=== PATIENT | male | born 1935 | race Caucasian/White ===

== ENCOUNTER → 2016-08-19 | Outpatient (CLI) | payer MEDICARE ==
[2016-08-19 11:23] LABS: ANION GAP 8 MEQ/L (8-16); BLOOD UREA NITROGEN 16 MG/DL (7-18); CALCIUM LEVEL 8.6 MG/DL (8.8-10.2); CARBON DIOXIDE LEVEL 29 MEQ/L (21-32); CHLORIDE LEVEL 107 MEQ/L (98-107); CREATININE FOR GFR 1.23 MG/DL (0.70-1.30); GLOMERULAR FILTRATION RATE > 60.0 (>35); GLUCOSE, FASTING 109 MG/DL (83-110); POTASSIUM SERUM 4.2 MEQ/L (3.5-5.1); SODIUM LEVEL 144 MEQ/L (136-145)
--- NOTE | 2016-08-19 16:51 | ECGEPIP ---
Stationary ECG Study [facility] Test Date: 2016-08-19 Pat Name: OCTAVIO CASTRO Department: Room: - Gender: M [employer]: : 1935 Requested By: OPAL Solo Order Number: [id number] Reading MD: Troy Lockhart Measurements Intervals [place] Rate: 82 P: 91 UT: 215 QRS: -24 QRSD: 105 T: 16 QT: 369 QTc: 431 Interpretive Statements Normal sinus rhythm with isolated PVC. First-degree AV block. Leftward axis. 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 No prior tracing for comparison Electronically Signed On 08-19-2016 16:51:46 EST by Troy Lockhart
== END ==
LOC: M LAB 09:42
PROVIDERS: ATTEND Ophthalmology
DX: H11.053 Peripheral pterygium, progressive, bilateral (principal)

== ENCOUNTER → 2017-05-22 | Outpatient (REF) | payer MEDICARE ==
[2017-05-22 19:00] LABS: BASO % 0.7 % (0.0-1.0); EOS # 0.2 10^3/uL (0.0-0.50); EOS % 2.5 % (0.0-3.0); IMMATURE GRANULOCYTE % 0.7 % (0-0); LYMPH # 1.3 10^3/uL (1.5-4.5); LYMPH % 21.3 % (24.0-44.0); MEAN CORPUSCULAR HEMOGLOBIN 29.5 pg (27.0-33.0); MEAN CORPUSCULAR HGB CONC 31.9 g/dl (32.0-36.5); MEAN CORPUSCULAR VOLUME 92.3 fl (80.0-96.0); MONO # 0.6 10^3/uL (0.0-0.8); MONO % 10.3 % (0.0-5.0); NEUTROPHILS # 3.9 10^3/uL (1.8-7.7); NEUTROPHILS % 64.5 % (36.0-66.0); PLATELET COUNT, AUTOMATED 273 10^3/uL (150-450); RED CELL DISTRIBUTION WIDTH 13.5 % (11.5-14.5); WHITE BLOOD COUNT 6.1 10^3/uL (4.0-10.0)
[2017-05-22 19:16] LABS: ALBUMIN 3.8 GM/DL (3.2-5.2); ALBUMIN/GLOBULIN RATIO 1.15 (1.00-1.93); ALKALINE PHOSPHATASE 105 U/L (45-117); ALT/SGPT 31 U/L (12-78); ANION GAP 7 MEQ/L (8-16); AST/SGOT 22 U/L (7-37); BILIRUBIN,TOTAL 0.6 MG/DL (0.2-1.0); BLOOD UREA NITROGEN 13 MG/DL (7-18); CALCIUM LEVEL 8.5 MG/DL (8.8-10.2); CARBON DIOXIDE LEVEL 30 MEQ/L (21-32); CHLORIDE LEVEL 105 MEQ/L (98-107); CHOLESTEROL LEVEL 204 MG/DL (<200); CREATININE FOR GFR 1.09 MG/DL (0.70-1.30); GLOMERULAR FILTRATION RATE > 60.0 (>35); GLUCOSE, FASTING 105 MG/DL (83-110); POTASSIUM SERUM 4.6 MEQ/L (3.5-5.1); SODIUM LEVEL 142 MEQ/L (136-145); TOTAL PROTEIN 7.1 GM/DL (6.4-8.2); TRIGLYCERIDES LEVEL 166 MG/DL (<150)
== END ==
LOC: M SFHCCLAY 11:05
PROVIDERS: ATTEND Family Medicine
DX: E78.2 Mixed hyperlipidemia (principal); D64.9 Anemia, unspecified
CPT/HCPCS: 80053; 80061; 85025; G0463

== ENCOUNTER → 2018-05-22 | Outpatient (REF) | payer MEDICARE ==
[2018-05-22 12:02] LABS: BASO # 0.1 10^3/uL (0.0-0.2); BASO % 0.8 % (0.0-1.0); EOS # 0.3 10^3/uL (0.0-0.50); EOS % 4.5 % (0.0-3.0); HEMATOCRIT 42.9 % (42.0-52.0); HEMOGLOBIN 13.6 g/dl (13.5-17.5); IMMATURE GRANULOCYTE % 1.1 % (0-3.0); LYMPH # 1.3 10^3/uL (1.5-4.5); LYMPH % 20.9 % (24.0-44.0); MEAN CORPUSCULAR HEMOGLOBIN 29.4 pg (27.0-33.0); MEAN CORPUSCULAR HGB CONC 31.7 g/dl (32.0-36.5); MEAN CORPUSCULAR VOLUME 92.7 fl (80.0-96.0); MONO # 0.9 10^3/uL (0.0-0.8); MONO % 14.3 % (0.0-5.0); NEUTROPHILS # 3.6 10^3/uL (1.8-7.7); NEUTROPHILS % 58.4 % (36.0-66.0); PLATELET COUNT, AUTOMATED 269 10^3/uL (150-450); RED BLOOD COUNT 4.63 10^6/uL (4.30-6.10); RED CELL DISTRIBUTION WIDTH 13.4 % (11.5-14.5); WHITE BLOOD COUNT 6.2 10^3/uL (4.0-10.0)
[2018-05-22 12:20] LABS: ALBUMIN 3.9 GM/DL (3.2-5.2); ALBUMIN/GLOBULIN RATIO 1.22 (1.00-1.93); ALKALINE PHOSPHATASE 92 U/L (45-117); ALT/SGPT 33 U/L (12-78); ANION GAP 6 MEQ/L (8-16); AST/SGOT 22 U/L (7-37); BILIRUBIN,TOTAL 0.4 MG/DL (0.2-1.0); BLOOD UREA NITROGEN 19 MG/DL (7-18); CALCIUM LEVEL 8.5 MG/DL (8.8-10.2); CARBON DIOXIDE LEVEL 31 MEQ/L (21-32); CHLORIDE LEVEL 105 MEQ/L (98-107); CHOLESTEROL LEVEL 194 MG/DL (<200); CHOLESTEROL RISK RATIO 4.974 (<5); CREATININE FOR GFR 1.47 MG/DL (0.70-1.30); GLOMERULAR FILTRATION RATE 48.8 (>35); GLUCOSE, FASTING 126 MG/DL (70-100); HDL CHOLESTEROL 39 MG/DL (>40); IRON (FE) 61 UG/DL (65-175); LDL CHOLESTEROL 121 MG/DL (<100); NON-HDL-C 155 MG/DL; POTASSIUM SERUM 4.7 MEQ/L (3.5-5.1); SODIUM LEVEL 142 MEQ/L (136-145); TOTAL PROTEIN 7.1 GM/DL (6.4-8.2); TRIGLYCERIDES LEVEL 168 MG/DL (<150)
[2018-05-22 12:24] LABS: FOLATE 20.4 NG/ML (>5.4); VITAMIN B12 LEVEL 547 PG/ML (247-911)
== END ==
LOC: M LABSMT 08:25
DX: D64.9 Anemia, unspecified (principal); E78.2 Mixed hyperlipidemia
CPT/HCPCS: 82746

== ENCOUNTER → 2019-05-25 | Outpatient (REF) | payer MEDICARE ==
[2019-05-25 18:23] LABS: ALBUMIN 3.8 GM/DL (3.2-5.2); ALT/SGPT 34 U/L (12-78); BASO # 0.1 10^3/uL (0.0-0.2); BASO % 0.9 % (0.0-1.0); BILIRUBIN,TOTAL 0.6 MG/DL (0.2-1.0); BLOOD UREA NITROGEN 17 MG/DL (7-18); CALCIUM LEVEL 8.2 MG/DL (8.8-10.2); CARBON DIOXIDE LEVEL 29 MEQ/L (21-32); CHLORIDE LEVEL 106 MEQ/L (98-107); CHOLESTEROL LEVEL 207 MG/DL (<200); CHOLESTEROL RISK RATIO 5.048 (<5); CREATININE FOR GFR 1.15 MG/DL (0.70-1.30); EOS # 0.3 10^3/uL (0.0-0.5); EOS % 4.1 % (0.0-3.0); GLOMERULAR FILTRATION RATE > 60.0 (>35); GLUCOSE, FASTING 130 MG/DL (70-100); HDL CHOLESTEROL 41 MG/DL (>40); HEMATOCRIT 43.1 % (42.0-52.0); HEMOGLOBIN 13.6 g/dl (13.5-17.5); IRON (FE) 91 UG/DL (65-175); LDL CHOLESTEROL 123 MG/DL (<100); LYMPH # 1.5 10^3/uL (1.5-5.0); LYMPH % 23.6 % (24.0-44.0); MEAN CORPUSCULAR HEMOGLOBIN 29.4 pg (27.0-33.0); MEAN CORPUSCULAR HGB CONC 31.6 g/dl (32.0-36.5); MEAN CORPUSCULAR VOLUME 93.1 fl (80.0-96.0); MONO # 0.8 10^3/uL (0.0-0.8); NEUTROPHILS # 3.7 10^3/uL (1.5-8.5); NEUTROPHILS % 57.3 % (36.0-66.0); NON-HDL-C 166 MG/DL; PLATELET COUNT, AUTOMATED 270 10^3/uL (150-450); POTASSIUM SERUM 4.5 MEQ/L (3.5-5.1); RED BLOOD COUNT 4.63 10^6/uL (4.30-6.10); SODIUM LEVEL 142 MEQ/L (136-145); TOTAL PROTEIN 7.2 GM/DL (6.4-8.2); TRIGLYCERIDES LEVEL 213 MG/DL (<150); WHITE BLOOD COUNT 6.4 10^3/uL (4.0-10.0)
== END ==
LOC: M SFHCCLAY 10:18
PROVIDERS: ATTEND Family Medicine
DX: E78.2 Mixed hyperlipidemia (principal); D64.9 Anemia, unspecified; N18.3 Chronic kidney disease, stage 3 (moderate)

== ENCOUNTER → 2020-02-23 | Outpatient (REF) | payer MEDICARE | LOC: M LAB REF 16:20 | PROVIDERS: ATTEND Dermatology | DX: L90.5 Scar conditions and fibrosis of skin (principal) ==

== ENCOUNTER → 2020-03-14 | Outpatient (REF) | payer MEDICARE ==
[2020-03-14 19:21] LABS: BASO # 0.1 10^3/uL (0.0-0.2); BASO % 1.1 % (0.0-1.0); EOS # 0.2 10^3/uL (0.0-0.5); EOS % 3.4 % (0.0-3.0); HEMATOCRIT 42.2 % (42.0-52.0); HEMOGLOBIN 13.3 g/dl (13.5-17.5); LYMPH # 1.3 10^3/uL (1.5-5.0); LYMPH % 20.4 % (24.0-44.0); MEAN CORPUSCULAR HEMOGLOBIN 29.6 pg (27.0-33.0); MEAN CORPUSCULAR HGB CONC 31.5 g/dl (32.0-36.5); MONO # 0.8 10^3/uL (0.0-0.8); MONO % 12.5 % (0.0-5.0); NEUTROPHILS % 61.4 % (36.0-66.0); PLATELET COUNT, AUTOMATED 273 10^3/uL (150-450); RED BLOOD COUNT 4.49 10^6/uL (4.30-6.10); WHITE BLOOD COUNT 6.5 10^3/uL (4.0-10.0)
[2020-03-14 19:29] LABS: ALBUMIN 3.9 GM/DL (3.2-5.2); ALT/SGPT 31 U/L (12-78); BILIRUBIN,TOTAL 0.7 MG/DL (0.2-1.0); BLOOD UREA NITROGEN 17 MG/DL (7-18); CALCIUM LEVEL 8.5 MG/DL (8.8-10.2); CARBON DIOXIDE LEVEL 29 MEQ/L (21-32); CHLORIDE LEVEL 106 MEQ/L (98-107); CHOLESTEROL LEVEL 206 MG/DL (<200); CHOLESTEROL RISK RATIO 5.421 (<5); CREATININE FOR GFR 1.21 MG/DL (0.70-1.30); GLOMERULAR FILTRATION RATE > 60.0 (>35); GLUCOSE, FASTING 122 MG/DL (70-100); HDL CHOLESTEROL 38 MG/DL (>40); IRON (FE) 90 UG/DL (65-175); LDL CHOLESTEROL 130 MG/DL (<100); NON-HDL-C 168 MG/DL; POTASSIUM SERUM 4.6 MEQ/L (3.5-5.1); SODIUM LEVEL 140 MEQ/L (136-145); TOTAL PROTEIN 7.1 GM/DL (6.4-8.2); TRIGLYCERIDES LEVEL 190 MG/DL (<150)
== END ==
LOC: M SFHCCLAY 18:58
PROVIDERS: ATTEND Family Medicine
DX: E78.2 Mixed hyperlipidemia (principal); D64.9 Anemia, unspecified; N18.3 Chronic kidney disease, stage 3 (moderate)

== ENCOUNTER → 2020-03-14 | Outpatient (REF) | payer MEDICARE | LOC: M LAB REF 14:00 | PROVIDERS: ATTEND Dermatology | DX: D22.5 Melanocytic nevi of trunk (principal) | CPT/HCPCS: 11604; 13101; 13102; 88305; G0463 ==

== ENCOUNTER → 2020-03-22 | Outpatient (CLI) | payer MEDICARE ==
[~2020-03-22] MED LIST: E-Z-GAS II EFFERVESCENT PACKET (SODIUM BICARB./CITRIC ACID/SIMETHICONE) As Ordered ONE; E-Z-HD 98% w/w 340GM SUSP BTL As Ordered ONE; E-Z-PAQUE 96% w/w SUSP 176GM BTL As Ordered ONE
--- NOTE | 2020-04-06 08:34 | REP ---
UPPER GI AIR CONTRAST: The procedure was performed under the direct supervision of Dr. Winter. The drive man film shows no organomegaly or pathologic masses. The intestinal gas pattern is nonspecific. Liquid barium and gas producing granules were given in the erect position as well as liquid barium in the prone oblique position in order to perform a double contrast upper GI examination. The oral and pharyngeal stages of deglutition are unremarkable. Esophageal transport is prompt and efficient. In the distal esophagus at THE GE junction, there is mucosal irregularity with a possible ulcer. Recommend endoscopy for further evaluation. There is hiatal hernia. Gastroesophageal reflux is not demonstrated on this examination. The stomach chang are normally outlined. The rugal folds are smooth and regular. There is no gastritis, neoplasm, or ulcer disease. The duodenal chang are normally outlined. The mucosal folds are smooth and regular. There is no duodenitis, pancreatitis, peptic ulcer disease or neoplasm. The visualized portion of the proximal small bowel appears normal in course and caliber. IMPRESSION: At the GE junction there is mucosal irregularity with a possible ulcer. Recommend endoscopy for further evaluation. 1minute of fluoroscopy time was utilized for this procedure. MTDD
== END ==
LOC: M RAD 08:25
PROVIDERS: ATTEND Family Medicine
DX: R13.10 Dysphagia, unspecified (principal)

== ENCOUNTER → 2020-03-28 | Outpatient (REF) | payer MEDICARE | LOC: M LAB REF 18:54 | PROVIDERS: ATTEND Dermatology | DX: S21.209A Unspecified open wound of unspecified back wall of thorax without penetration into thoracic cavity, initial encounter (principal); X58.XXXA Exposure to other specified factors, initial encounter; Y92.9 Unspecified place or not applicable ==

== ENCOUNTER → 2021-04-13 | Outpatient (REF) | payer MEDICARE ==
[2021-04-13 16:35] LABS: BASO # 0.1 10^3/uL (0.0-0.2); EOS # 0.3 10^3/uL (0.0-0.5); EOS % 5.1 % (0.0-3.0); HEMATOCRIT 39.6 % (42.0-52.0); LYMPH # 1.1 10^3/uL (1.5-5.0); LYMPH % 20.8 % (24.0-44.0); MEAN CORPUSCULAR HEMOGLOBIN 29.7 pg (27.0-33.0); MEAN CORPUSCULAR HGB CONC 32.8 g/dl (32.0-36.5); MEAN CORPUSCULAR VOLUME 90.4 fl (80.0-96.0); MONO # 0.8 10^3/uL (0.0-0.8); MONO % 15.4 % (2.0-8.0); NEUTROPHILS # 2.9 10^3/uL (1.5-8.5); NEUTROPHILS % 56.9 % (36.0-66.0); PLATELET COUNT, AUTOMATED 240 10^3/uL (150-450); RED BLOOD COUNT 4.38 10^6/uL (4.30-6.10); WHITE BLOOD COUNT 5.1 10^3/uL (4.0-10.0)
[2021-04-13 17:13] LABS: ALBUMIN 3.6 GM/DL (3.2-5.2); BILIRUBIN,TOTAL 0.5 MG/DL (0.2-1.0); CALCIUM LEVEL 8.7 MG/DL (8.8-10.2); CHOLESTEROL RISK RATIO 5.272 (<5); CREATININE FOR GFR 1.28 MG/DL (0.70-1.30); POTASSIUM SERUM 4.5 MEQ/L (3.5-5.1); TOTAL PROTEIN 6.8 GM/DL (6.4-8.2)
== END ==
LOC: M SFHCCLAY 09:40
PROVIDERS: ATTEND Family Medicine
DX: E78.2 Mixed hyperlipidemia (principal); D64.9 Anemia, unspecified

== ENCOUNTER → 2021-08-01 | Outpatient (REF) | payer MEDICARE ==
[~2021-08-01] MED LIST changes: -E-Z-GAS II EFFERVESCENT PACKET (SODIUM BICARB./CITRIC ACID/SIMETHICONE) As Ordered ONE; -E-Z-HD 98% w/w 340GM SUSP BTL As Ordered ONE; -E-Z-PAQUE 96% w/w SUSP 176GM BTL As Ordered ONE; +OCUVTAB4 PO; +PANT40TA29 PO; +SYST1SOL OU; +VESI5TAB2 PO; +[UNRECOGNIZED DRUG - OTHER] PO
[2021-08-01 16:12] LABS: BASO # 0.1 10^3/uL (0.0-0.2); BASO % 0.9 % (0.0-1.0); EOS # 0.4 10^3/uL (0.0-0.5); HEMOGLOBIN 12.9 g/dl (13.5-17.5); LYMPH % 11.8 % (24.0-44.0); MEAN CORPUSCULAR HEMOGLOBIN 29.4 pg (27.0-33.0); MEAN CORPUSCULAR HGB CONC 32.3 g/dl (32.0-36.5); MEAN CORPUSCULAR VOLUME 91.1 fl (80.0-96.0); MONO # 1.1 10^3/uL (0.0-0.8); MONO % 12.6 % (2.0-8.0); PLATELET COUNT, AUTOMATED 271 10^3/uL (150-450); RED BLOOD COUNT 4.39 10^6/uL (4.30-6.10); WHITE BLOOD COUNT 8.7 10^3/uL (4.0-10.0)
[2021-08-01 16:31] LABS: ALBUMIN 3.7 GM/DL (3.2-5.2); BILIRUBIN,TOTAL 0.5 MG/DL (0.2-1.0); CALCIUM LEVEL 8.8 MG/DL (8.8-10.2); CREATININE FOR GFR 1.27 MG/DL (0.70-1.30); GLOMERULAR FILTRATION RATE 57.4 (>35); POTASSIUM SERUM 4.8 MEQ/L (3.5-5.1); TOTAL PROTEIN 6.9 GM/DL (6.4-8.2)
== END ==
LOC: M SFHCCLAY 10:08
PROVIDERS: ATTEND Family Medicine
DX: N18.31 Chronic kidney disease, stage 3a (principal); D63.1 Anemia in chronic kidney disease

== ENCOUNTER → 2021-08-04 | Outpatient (CLI) | payer MEDICARE ==
[~2021-08-04] MED LIST changes: +ALLE10TA32 PO; +ALLE180T33 PO; +FLON1SPR NARES; +HYDR-3713 PO; +IBUP200T46 PO; +SOLI5TAB PO; +TRIA1CR80 TOP
== END ==
LOC: M LABSMTC 09:37
PROVIDERS: ATTEND Anesthesiology
DX: Z01.812 Encounter for preprocedural laboratory examination (principal); Z20.822 Contact with and (suspected) exposure to COVID-19

== ENCOUNTER 2021-08-09 09:05 | Day surgery (SDC) | payer MEDICARE ==
[~2021-08-09] VITALS: Ht 175.3 cm; Wt 105.2 kg
[~2021-08-09 09:05] MED LIST changes: -ALLE10TA32 PO; -ALLE180T33 PO; -FLON1SPR NARES; -HYDR-3713 PO; -IBUP200T46 PO; +LR 1,000 ML IV SCH; -SOLI5TAB PO; -TRIA1CR80 TOP
[2021-08-09] MEDS ORDERED: LIDOCAINE 2% 100MG/5ML SDV (FOR ANES.) As Ordered ONE (10:00)
[2021-08-09] MEDS ORDERED: dexameTHASONE 4 MG/ML 1ML VIAL (J1100 PER 1MG) As Ordered ONE (10:00)
[2021-08-09] MEDS ORDERED: SUGAMMADEX SODIUM 500 MG/5 ML VIAL (BRIDION) As Ordered ONE (10:00)
[2021-08-09] MEDS ORDERED: ROCURONIUM BROMIDE 50 MG/5 ML VIAL As Ordered ONE (10:00)
[2021-08-09] MEDS ORDERED: ONDANSETRON 4MG/2ML VIAL As Ordered ONE (10:00)
[2021-08-09] MEDS ORDERED: propofoL 200 MG/20 ML VIAL As Ordered ONE (10:00)
[2021-08-09] MEDS ORDERED: KETOROLAC 60MG 2ML VIAL As Ordered ONE (10:00)
[2021-08-09] MEDS ORDERED: MIDAZOLAM INJ 2MG/2ML VIAL (J2250 PER 1MG) As Ordered ONE (10:01)
[2021-08-09] MEDS ORDERED: fentaNYL 100 MCG/2 ML INJECTION As Ordered ONE (10:01)
[2021-08-09] MEDS ORDERED: CETACAINE SPRAY 5GM As Ordered ONE (11:27)
[2021-08-09] MEDS ORDERED: LABETALOL 100MG/20ML VIAL As Ordered ONE (11:27)
[2021-08-09] MEDS ORDERED: LR 1,000 ML IV SCH (12:45)
[2021-08-09] MEDS ORDERED: PERCOCET 5MG/325MG TAB PO PRN (12:45)
[2021-08-09] MEDS ORDERED: fentaNYL 100 MCG/2 ML INJECTION IV PRN (12:45)
[2021-08-09] MEDS ORDERED: ONDANSETRON 4MG/2ML VIAL IV PRN (12:45)
[2021-08-09 13:25] VITALS: BP 158/82
== END 2021-08-09 13:25 | disposition home or self-care (01) ==
LOC: M SDC 09:05
PROVIDERS: ATTEND Otolaryngology
DX: C32.0 Malignant neoplasm of glottis (principal); E78.2 Mixed hyperlipidemia; D64.9 Anemia, unspecified; N18.31 Chronic kidney disease, stage 3a; K21.00 Gastro-esophageal reflux disease with esophagitis, without bleeding; H91.93 Unspecified hearing loss, bilateral; L30.9 Dermatitis, unspecified; R39.15 Urgency of urination; E78.5 Hyperlipidemia, unspecified; J44.9 Chronic obstructive pulmonary disease, unspecified; Z87.891 Personal history of nicotine dependence; Z79.899 Other long term (current) drug therapy
CPT/HCPCS: 31540; 88305; J1100; J1885; J2250; J2405; J3010

== ENCOUNTER → 2021-08-24 | Outpatient (CLI) | payer MEDICARE ==
[~2021-08-24] MED LIST changes: +ALLE10TA32 PO; +ALLE180T33 PO; +FLON1SPR NARES; +HYDR-3713 PO; +IBUP200T46 PO; +ISOVUE-370 76% 100ML VIAL ONE; -LR 1,000 ML IV SCH; +SOLI5TAB PO; +TRIA1CR80 TOP
== END ==
LOC: M PLAIMG 15:16
PROVIDERS: ATTEND Otolaryngology
DX: C32.0 Malignant neoplasm of glottis (principal)
CPT/HCPCS: 70491; Q9967

== ENCOUNTER → 2021-08-28 | Outpatient (CLI) | payer MEDICARE ==
[~2021-08-28] MED LIST changes: -ISOVUE-370 76% 100ML VIAL ONE
== END ==
LOC: M ONCR 12:26
PROVIDERS: ATTEND General Practice
DX: C32.0 Malignant neoplasm of glottis (principal); Z87.891 Personal history of nicotine dependence
CPT/HCPCS: 31575; G0463

== ENCOUNTER 2021-09-24 12:24 | Outpatient (RCR) | payer MEDICARE ==
[~2021-09-24 12:24] MED LIST changes: -CEPH500C PO; -DEXA4TA PO; -GNPLIQ60 PO; -NAPR-885 PO
[2021-09-24] MEDS ORDERED: CEPH500C PO (14:18)
[2021-09-24] MEDS ORDERED: DEXA4TA PO (14:18)
[2021-09-24 15:11] LABS: CREATININE FOR GFR 1.32 MG/DL (0.70-1.30); GLOMERULAR FILTRATION RATE 54.9 (>35); POTASSIUM SERUM 4.2 MEQ/L (3.5-5.1)
[2021-09-24 15:12] LABS: ALBUMIN 3.4 GM/DL (3.2-5.2); BILIRUBIN,TOTAL 0.8 MG/DL (0.2-1.0); CALCIUM LEVEL 8.9 MG/DL (8.8-10.2); TOTAL PROTEIN 7.7 GM/DL (6.4-8.2)
[2021-09-25] MEDS ORDERED: NAPR-885 PO (17:27)
[2021-09-25] MEDS ORDERED: GNPLIQ60 PO (17:27)
[2021-10-01] MEDS ORDERED: METO1TAB87 PO (10:34)
[2021-10-01] MEDS ORDERED: AMLO1TAB25 PO (10:34)
[2021-10-01] MEDS ORDERED: ACET325C5 PO (10:34)
[2021-10-01] MEDS ORDERED: AUGM500T34 PO (10:36)
[2021-10-01] MEDS ORDERED: METF500T13 PO (10:36)
[2021-10-01] MEDS ORDERED: PROB250C PO (10:37)
[2021-10-09] MEDS ORDERED: PROC10TA5 PO (13:51)
[2021-10-09] MEDS ORDERED: ONDA-84 PO (13:51)
== END 2021-10-04 ==
LOC: M ONCR 12:24
PROVIDERS: ATTEND General Practice
DX: C32.0 Malignant neoplasm of glottis (principal)

== ENCOUNTER → 2021-09-24 | Outpatient (CLI) | payer MEDICARE ==
[~2021-09-24] MED LIST changes: +CEPH500C PO; +DEXA4TA PO; +GNPLIQ60 PO; +ISOVUE-370 76% 100ML VIAL As Ordered ONE; +NAPR-885 PO
== END ==
LOC: M RAD 14:56
PROVIDERS: ATTEND General Practice
DX: C32.0 Malignant neoplasm of glottis (principal)

== ENCOUNTER → 2021-09-24 | Outpatient (CLI) | payer MEDICARE ==
[~2021-09-24] MED LIST changes: -ISOVUE-370 76% 100ML VIAL As Ordered ONE
== END ==
LOC: M ONCR 14:32
PROVIDERS: ATTEND General Practice
DX: C32.0 Malignant neoplasm of glottis (principal)

== ENCOUNTER 2021-09-25 14:40 | Inpatient (IN) | payer MEDICARE ==
[~2021-09-25] VITALS: Ht 177.8 cm; Wt 99.0 kg
[~2021-09-25 14:40] MED LIST changes: +CEPH500C PO; +DEXA4TA PO
[2021-09-25] MEDS ORDERED: NS 1,000 ML IV SCH ×2 (15:05→16:30)
[2021-09-25 15:38] LABS: BASO % 0.1 % (0.0-1.0); HEMATOCRIT 36.6 % (42.0-52.0); HEMOGLOBIN 11.9 g/dl (13.5-17.5); LYMPH # 0.6 10^3/uL (1.5-5.0); LYMPH % 5.9 % (24.0-44.0); MEAN CORPUSCULAR HEMOGLOBIN 28.5 pg (27.0-33.0); MEAN CORPUSCULAR HGB CONC 32.5 g/dl (32.0-36.5); MEAN CORPUSCULAR VOLUME 87.8 fl (80.0-96.0); MONO # 0.6 10^3/uL (0.0-0.8); MONO % 5.7 % (2.0-8.0); NEUTROPHILS # 8.6 10^3/uL (1.5-8.5); PLATELET COUNT, AUTOMATED 388 10^3/uL (150-450); RED BLOOD COUNT 4.17 10^6/uL (4.30-6.10); WHITE BLOOD COUNT 9.9 10^3/uL (4.0-10.0)
[2021-09-25 15:49] LABS: INR 1.1; PROTHROMBIN TIME 14.6 SECONDS (12.7-14.5)
[2021-09-25 16:02] LABS: ALBUMIN 3.2 GM/DL (3.2-5.2); BILIRUBIN,DIRECT 0.1 MG/DL (0.0-0.2); BILIRUBIN,TOTAL 0.7 MG/DL (0.2-1.0); CALCIUM LEVEL 8.4 MG/DL (8.8-10.2); CREATININE FOR GFR 1.47 MG/DL (0.70-1.30); GLOMERULAR FILTRATION RATE 48.5 (>35); POTASSIUM SERUM 4.5 MEQ/L (3.5-5.1)
[2021-09-25 16:22] LABS: RSV AMPLIFICATION NEGATIVE (NEGATIVE)
[2021-09-25] MEDS ORDERED: DEXTROSE 50% 50 ML SYRINGE IV PRN (17:25)
[2021-09-25] MEDS ORDERED: GLUCOSE 4GM CHEW TABLET PO PRN (17:25)
[2021-09-25] MEDS ORDERED: GLUCAGON INJ 1MG VIAL SC PRN (17:25)
[2021-09-25] MEDS ORDERED: NAPR-885 PO (17:27)
[2021-09-25] MEDS ORDERED: GNPLIQ60 PO (17:27)
[2021-09-25] MEDS ORDERED: HOME MED LIST COMPLETE! XX SCH (17:30)
[2021-09-25] MEDS: LR 1,000 ML IV SCH (17:38)
[2021-09-25 17:52] VITALS: BP 142/78
[2021-09-25] MEDS: HumaLOG INSULIN (NovoLOG) PER UNIT SC SCH (18:00)
[2021-09-25] MEDS: NORCO, ANEXSIA 5/325MG TABLET (HYDROcodone/ACETAMINOPHEN) PO SCH (18:00)
[2021-09-25] MEDS ORDERED: cefTRIAXone SOD 1 GM in D5W MINI-BAG PLUS 50 ML IV SCH (18:00)
[2021-09-25] MEDS: PANTOPRAZOLE 40MG VIAL IV SCH (18:23)
[2021-09-25 20:15] LABS: HEMOGLOBIN A1c 8.2 %
[2021-09-26] VITALS (17 sets, daily range): BP systolic 160–189; BP diastolic 75–89; O2SAT 94–98
[2021-09-26] MEDS: NORCO, ANEXSIA 5/325MG TABLET (HYDROcodone/ACETAMINOPHEN) PO SCH ×3 (06:00→12:00)
[2021-09-26] MEDS: HumaLOG INSULIN (NovoLOG) PER UNIT SC SCH ×5 (06:00→23:23)
[2021-09-26 06:55] LABS: HEMATOCRIT 34.2 % (42.0-52.0); HEMOGLOBIN 11.4 g/dl (13.5-17.5); MEAN CORPUSCULAR HEMOGLOBIN 29.5 pg (27.0-33.0); MEAN CORPUSCULAR HGB CONC 33.3 g/dl (32.0-36.5); MEAN CORPUSCULAR VOLUME 88.4 fl (80.0-96.0); PLATELET COUNT, AUTOMATED 385 10^3/uL (150-450); RED BLOOD COUNT 3.87 10^6/uL (4.30-6.10); WHITE BLOOD COUNT 13.4 10^3/uL (4.0-10.0)
[2021-09-26] MEDS: LR 1,000 ML IV SCH ×2 (06:55→16:37)
[2021-09-26 07:26] LABS: CALCIUM LEVEL 8.7 MG/DL (8.8-10.2); CREATININE FOR GFR 1.37 MG/DL (0.70-1.30); GLOMERULAR FILTRATION RATE 52.6 (>35)
[2021-09-26] MEDS: dexameTHASONE 4 MG/ML 1ML VIAL (J1100 PER 1MG) IV SCH (09:43)
[2021-09-26] MEDS: PANTOPRAZOLE 40MG VIAL IV SCH (09:43)
[2021-09-26] MEDS ORDERED: propofoL 200 MG/20 ML VIAL As Ordered ONE (12:14)
[2021-09-26] MEDS ORDERED: ONDANSETRON 4MG/2ML VIAL As Ordered ONE (12:14)
[2021-09-26] MEDS ORDERED: dexameTHASONE 4 MG/ML 1ML VIAL (J1100 PER 1MG) As Ordered ONE (12:14)
[2021-09-26] MEDS ORDERED: ROCURONIUM BROMIDE 50 MG/5 ML VIAL As Ordered ONE (12:14)
[2021-09-26] MEDS ORDERED: LIDOCAINE 2% 100MG/5ML SDV (FOR ANES.) As Ordered ONE (12:14)
[2021-09-26] MEDS ORDERED: SUGAMMADEX SODIUM 500 MG/5 ML VIAL (BRIDION) As Ordered ONE (12:14)
[2021-09-26] MEDS ORDERED: fentaNYL 100 MCG/2 ML INJECTION As Ordered ONE (12:21)
[2021-09-26] MEDS ORDERED: MIDAZOLAM INJ 2MG/2ML VIAL (J2250 PER 1MG) As Ordered ONE (12:21)
[2021-09-26] MEDS ORDERED: KETAMINE HCL 200 MG/20 ML VIAL As Ordered ONE (12:58)
[2021-09-26] MEDS ORDERED: LIDOCAINE W/EPINEPHRINE 1% 20ML VIAL As Ordered ONE (13:05)
[2021-09-26] MEDS ORDERED: ALBUTEROL SULFATE 2.5 MG/0.5 ML INH NEB SOLN As Ordered ONE (13:08)
[2021-09-26] MEDS ORDERED: GLYCOPYRROLATE INJ 0.2 MG/ML 2 ML VIAL As Ordered ONE (13:42)
[2021-09-26] MEDS ORDERED: fentaNYL 100 MCG/2 ML INJECTION IV PRN (15:25)
[2021-09-26] MEDS ORDERED: ONDANSETRON 4MG/2ML VIAL IV PRN (15:25)
[2021-09-26] MEDS ORDERED: HYDROMORPHONE HCL 0.5 MG/ 0.5 ML SYRINGE (J1170 PER 1) IV PRN (15:25)
[2021-09-26] MEDS ORDERED: hydrALAZINE 20MG/ML 1ML VIAL (J0360 PER 20MG) As Ordered ONE (15:27)
[2021-09-26] MEDS ORDERED: hydrALAZINE 20MG/ML 1ML VIAL (J0360 PER 20MG) IV PRN (15:50)
[2021-09-26] MEDS: CLINDAMYCIN 600 MG in IV 1 EA IV SCH (17:52)
[2021-09-26] MEDS: ACETAMINOPH W/CODEINE #3 TAB UD PO PRN (18:20)
[2021-09-26] MEDS ORDERED: amLODIPine 5 MG TAB PO ONE (19:45)
[2021-09-26] MEDS: hydrOXYzine 10 MG TAB PO PRN (23:11)
[2021-09-27] VITALS (13 sets, daily range): BP systolic 157–184; BP diastolic 74–84; O2SAT 92–99
[2021-09-27] MEDS: LR 1,000 ML IV SCH ×2 (00:42→08:21)
[2021-09-27] MEDS: CLINDAMYCIN 600 MG in IV 1 EA IV SCH (01:10)
[2021-09-27] MEDS: ACETAMINOPH W/CODEINE #3 TAB UD PO PRN (01:32)
[2021-09-27] MEDS: HumaLOG INSULIN (NovoLOG) PER UNIT SC SCH ×4 (05:35→20:35)
[2021-09-27] MEDS: hydrOXYzine 10 MG TAB PO PRN (06:51)
[2021-09-27 06:58] LABS: HEMATOCRIT 37.3 % (42.0-52.0); HEMOGLOBIN 11.9 g/dl (13.5-17.5); MEAN CORPUSCULAR HEMOGLOBIN 28.5 pg (27.0-33.0); MEAN CORPUSCULAR HGB CONC 31.9 g/dl (32.0-36.5); MEAN CORPUSCULAR VOLUME 89.2 fl (80.0-96.0); PLATELET COUNT, AUTOMATED 425 10^3/uL (150-450); RED BLOOD COUNT 4.18 10^6/uL (4.30-6.10); WHITE BLOOD COUNT 12.9 10^3/uL (4.0-10.0)
[2021-09-27 07:24] LABS: CALCIUM LEVEL 8.4 MG/DL (8.8-10.2); CREATININE FOR GFR 1.44 MG/DL (0.70-1.30); GLOMERULAR FILTRATION RATE 49.6 (>35)
[2021-09-27] MEDS: PANTOPRAZOLE 40MG TAB (PROTONIX) PO SCH ×2 (08:17→09:44)
[2021-09-27] MEDS: dexameTHASONE 4 MG/ML 1ML VIAL (J1100 PER 1MG) IV SCH (08:18)
[2021-09-27] MEDS ORDERED: amLODIPine 5 MG TAB PO SCH (09:00)
[2021-09-27] MEDS ORDERED: diphenhydrAMINE 25MG CAP PO PRN (10:25)
[2021-09-27] MEDS: AMPICILLIN SOD/SULBACTAM SOD 3 GM in D5W MINI-BAG PLUS 100 ML IV SCH ×3 (11:24→23:06)
[2021-09-27] MEDS ORDERED: hydrALAZINE 20MG/ML 1ML VIAL (J0360 PER 20MG) IV PRN (15:30)
[2021-09-27] MEDS ORDERED: FUROSEMIDE 20MG/2ML VIAL (J1940) IV ONE (15:35)
[2021-09-27] MEDS ORDERED: FUROSEMIDE 40MG/4ML VIAL (J1940) IV ONE (15:45)
[2021-09-27] MEDS: HEPARIN SOD (PORCINE) 5000UNITS/ML 1ML VIAL/SYRINGE SQ SCH ×2 (16:04→23:06)
[2021-09-28] VITALS (22 sets, daily range): BP systolic 134–182; BP diastolic 65–83; O2SAT 91–99
[2021-09-28] MEDS: AMPICILLIN SOD/SULBACTAM SOD 3 GM in D5W MINI-BAG PLUS 100 ML IV SCH ×4 (05:36→22:01)
[2021-09-28] MEDS: HEPARIN SOD (PORCINE) 5000UNITS/ML 1ML VIAL/SYRINGE SQ SCH ×3 (05:36→22:02)
[2021-09-28 06:21] LABS: HEMATOCRIT 36.5 % (42.0-52.0); MEAN CORPUSCULAR HEMOGLOBIN 28.6 pg (27.0-33.0); MEAN CORPUSCULAR HGB CONC 32.9 g/dl (32.0-36.5); MEAN CORPUSCULAR VOLUME 86.9 fl (80.0-96.0); PLATELET COUNT, AUTOMATED 413 10^3/uL (150-450); WHITE BLOOD COUNT 10.2 10^3/uL (4.0-10.0)
[2021-09-28 06:44] LABS: CALCIUM LEVEL 8.4 MG/DL (8.8-10.2); CREATININE FOR GFR 1.34 MG/DL (0.70-1.30); GLOMERULAR FILTRATION RATE 53.9 (>35); POTASSIUM SERUM 3.8 MEQ/L (3.5-5.1)
[2021-09-28] MEDS ORDERED: FUROSEMIDE 20MG/2ML VIAL (J1940) IV ONE (08:15)
[2021-09-28] MEDS: dexameTHASONE 4 MG/ML 1ML VIAL (J1100 PER 1MG) IV SCH (08:29)
[2021-09-28] MEDS: HumaLOG INSULIN (NovoLOG) PER UNIT SC SCH ×4 (08:29→20:04)
[2021-09-28] MEDS: PANTOPRAZOLE 40MG TAB (PROTONIX) PO SCH (08:30)
[2021-09-29] VITALS (12 sets, daily range): BP systolic 128–164; BP diastolic 67–77; O2SAT 95–99
[2021-09-29] MEDS: AMPICILLIN SOD/SULBACTAM SOD 3 GM in D5W MINI-BAG PLUS 100 ML IV SCH ×4 (05:05→22:49)
[2021-09-29] MEDS: HEPARIN SOD (PORCINE) 5000UNITS/ML 1ML VIAL/SYRINGE SQ SCH ×3 (05:05→22:49)
[2021-09-29 06:20] LABS: HEMATOCRIT 35.5 % (42.0-52.0); HEMOGLOBIN 11.4 g/dl (13.5-17.5); MEAN CORPUSCULAR HEMOGLOBIN 28.4 pg (27.0-33.0); MEAN CORPUSCULAR HGB CONC 32.1 g/dl (32.0-36.5); MEAN CORPUSCULAR VOLUME 88.5 fl (80.0-96.0); PLATELET COUNT, AUTOMATED 383 10^3/uL (150-450); RED BLOOD COUNT 4.01 10^6/uL (4.30-6.10); WHITE BLOOD COUNT 10.5 10^3/uL (4.0-10.0)
[2021-09-29 06:43] LABS: CALCIUM LEVEL 8.3 MG/DL (8.8-10.2); CREATININE FOR GFR 1.26 MG/DL (0.70-1.30); GLOMERULAR FILTRATION RATE 57.9 (>35); POTASSIUM SERUM 4.3 MEQ/L (3.5-5.1)
[2021-09-29] MEDS ORDERED: FUROSEMIDE 40MG/4ML VIAL (J1940) IV ONE (07:30)
[2021-09-29] MEDS: PANTOPRAZOLE 40MG TAB (PROTONIX) PO SCH (08:34)
[2021-09-29] MEDS: HumaLOG INSULIN (NovoLOG) PER UNIT SC SCH ×4 (08:36→20:03)
[2021-09-30 03:10] VITALS: BP 154/76
[2021-09-30] MEDS: AMPICILLIN SOD/SULBACTAM SOD 3 GM in D5W MINI-BAG PLUS 100 ML IV SCH ×4 (05:10→22:03)
[2021-09-30] MEDS: HEPARIN SOD (PORCINE) 5000UNITS/ML 1ML VIAL/SYRINGE SQ SCH ×3 (05:10→22:03)
[2021-09-30 05:29] LABS: HEMATOCRIT 36.9 % (42.0-52.0); HEMOGLOBIN 12.1 g/dl (13.5-17.5); MEAN CORPUSCULAR HEMOGLOBIN 28.7 pg (27.0-33.0); MEAN CORPUSCULAR HGB CONC 32.8 g/dl (32.0-36.5); MEAN CORPUSCULAR VOLUME 87.6 fl (80.0-96.0); PLATELET COUNT, AUTOMATED 399 10^3/uL (150-450); RED BLOOD COUNT 4.21 10^6/uL (4.30-6.10); WHITE BLOOD COUNT 10.4 10^3/uL (4.0-10.0)
[2021-09-30 05:48] LABS: CALCIUM LEVEL 8.3 MG/DL (8.8-10.2); CREATININE FOR GFR 1.33 MG/DL (0.70-1.30); GLOMERULAR FILTRATION RATE 54.4 (>35); POTASSIUM SERUM 4.7 MEQ/L (3.5-5.1)
[2021-09-30 07:25] VITALS: BP 162/76
[2021-09-30] MEDS: PANTOPRAZOLE 40MG TAB (PROTONIX) PO SCH (08:11)
[2021-09-30] MEDS: HumaLOG INSULIN (NovoLOG) PER UNIT SC SCH ×4 (08:11→20:03)
[2021-09-30] MEDS: ACETAMINOPH W/CODEINE #3 TAB UD PO PRN ×2 (08:21→18:17)
[2021-09-30] MEDS ORDERED: FUROSEMIDE 20 MG TAB PO SCH (09:00)
[2021-09-30 12:02] VITALS: BP 145/71
[2021-09-30 19:14] VITALS: BP 145/69
[2021-10-01 03:05] VITALS: BP 177/81
[2021-10-01] MEDS: AMPICILLIN SOD/SULBACTAM SOD 3 GM in D5W MINI-BAG PLUS 100 ML IV SCH ×2 (05:00→10:46)
[2021-10-01] MEDS: HEPARIN SOD (PORCINE) 5000UNITS/ML 1ML VIAL/SYRINGE SQ SCH (05:01)
[2021-10-01 05:55] LABS: HEMATOCRIT 37.5 % (42.0-52.0); HEMOGLOBIN 12.3 g/dl (13.5-17.5); MEAN CORPUSCULAR HEMOGLOBIN 28.6 pg (27.0-33.0); MEAN CORPUSCULAR HGB CONC 32.8 g/dl (32.0-36.5); MEAN CORPUSCULAR VOLUME 87.2 fl (80.0-96.0); PLATELET COUNT, AUTOMATED 392 10^3/uL (150-450); WHITE BLOOD COUNT 11.4 10^3/uL (4.0-10.0)
[2021-10-01 06:25] LABS: ALBUMIN 3.1 GM/DL (3.2-5.2); BILIRUBIN,TOTAL 0.4 MG/DL (0.2-1.0); CALCIUM LEVEL 8.4 MG/DL (8.8-10.2); CREATININE FOR GFR 1.41 MG/DL (0.70-1.30); GLOMERULAR FILTRATION RATE 50.9 (>35); POTASSIUM SERUM 4.6 MEQ/L (3.5-5.1); TOTAL PROTEIN 6.2 GM/DL (6.4-8.2)
[2021-10-01 08:15] VITALS: BP 135/66
[2021-10-01 08:17] VITALS: BP 135/66
[2021-10-01] MEDS: HumaLOG INSULIN (NovoLOG) PER UNIT SC SCH ×2 (08:17→12:11)
[2021-10-01] MEDS: PANTOPRAZOLE 40MG TAB (PROTONIX) PO SCH (08:18)
[2021-10-01] MEDS ORDERED: METOPROLOL TART 12.5 MG PER 1/2 TAB PO SCH (09:00)
[2021-10-01] MEDS ORDERED: METO1TAB87 PO (10:34)
[2021-10-01] MEDS ORDERED: AMLO1TAB25 PO (10:34)
[2021-10-01] MEDS ORDERED: ACET325C5 PO (10:34)
[2021-10-01] MEDS ORDERED: AUGM500T34 PO (10:36)
[2021-10-01] MEDS ORDERED: METF500T13 PO (10:36)
[2021-10-01] MEDS ORDERED: PROB250C PO (10:37)
[2021-10-01] MEDS: ACETAMINOPH W/CODEINE #3 TAB UD PO PRN (10:45)
== END 2021-10-01 13:18 | disposition home health service (06) | DRG 12 ==
LOC: M ED 14:40 → M ED INP 16:27 → ENRESERV 17:19 → M MS5PR 18:01 → M PCU 09-26 15:50
PROVIDERS: ADMIT Internal Medicine; ATTEND Internal Medicine
PROC: 0HB4XZX Excision of Neck Skin, External Approach, Diagnostic (ICD-10-PCS; 2021-09-26)
PROC: 0B110F4 Bypass Trachea to Cutaneous with Tracheostomy Device, Open Approach (ICD-10-PCS; principal; 2021-09-26 13:00)
DX: C32.0 Malignant neoplasm of glottis (principal); N17.9 Acute kidney failure, unspecified; L02.11 Cutaneous abscess of neck; E78.5 Hyperlipidemia, unspecified; D64.9 Anemia, unspecified; K21.9 Gastro-esophageal reflux disease without esophagitis; H91.93 Unspecified hearing loss, bilateral; N18.30 Chronic kidney disease, stage 3 unspecified; E11.22 Type 2 diabetes mellitus with diabetic chronic kidney disease; I12.9 Hypertensive chronic kidney disease with stage 1 through stage 4 chronic kidney disease, or unspecified chronic kidney disease; B95.5 Unspecified streptococcus as the cause of diseases classified elsewhere; J38.4 Edema of larynx; E11.65 Type 2 diabetes mellitus with hyperglycemia; R22.0 Localized swelling, mass and lump, head; T36.8X5A Adverse effect of other systemic antibiotics, initial encounter; Z98.49 Cataract extraction status, unspecified eye; Z87.891 Personal history of nicotine dependence; Z79.899 Other long term (current) drug therapy; Z93.0 Tracheostomy status

== ENCOUNTER 2021-10-10 09:29 | Inpatient (IN) | payer MEDICARE ==
[~2021-10-10 09:29] MED LIST changes: +ACET325C5 PO; +AMLO1TAB25 PO; +AUGM500T34 PO; +GNPLIQ60 PO; +METF500T13 PO; +METO1TAB87 PO; +NAPR-885 PO; +ONDA-84 PO; +PROB250C PO; +PROC10TA5 PO
[2021-10-10] MEDS ORDERED: ONDANSETRON 4MG/2ML VIAL As Ordered ONE ×2 (09:51→14:13)
[2021-10-10] MEDS ORDERED: RACEPINEPHrine 2.25 % UD INHA INH ONE (10:05)
[2021-10-10 10:34] LABS: BASO # 0.1 10^3/uL (0.0-0.2); BASO % 0.4 % (0.0-1.0); EOS % 0.1 % (0.0-3.0); HEMATOCRIT 37.5 % (42.0-52.0); LYMPH # 0.7 10^3/uL (1.5-5.0); LYMPH % 5.2 % (24.0-44.0); MEAN CORPUSCULAR HEMOGLOBIN 28.4 pg (27.0-33.0); MEAN CORPUSCULAR VOLUME 88.9 fl (80.0-96.0); MONO # 1.2 10^3/uL (0.0-0.8); MONO % 8.7 % (2.0-8.0); NEUTROPHILS # 11.7 10^3/uL (1.5-8.5); NEUTROPHILS % 84.8 % (36.0-66.0); PLATELET COUNT, AUTOMATED 435 10^3/uL (150-450); RED BLOOD COUNT 4.22 10^6/uL (4.30-6.10); WHITE BLOOD COUNT 13.8 10^3/uL (4.0-10.0)
[2021-10-10 11:05] LABS: ALBUMIN 3.4 GM/DL (3.2-5.2); ALT/SGPT 41 U/L (12-78); BILIRUBIN,DIRECT 0.2 MG/DL (0.0-0.2); BILIRUBIN,TOTAL 0.6 MG/DL (0.2-1.0); BLOOD UREA NITROGEN 18 MG/DL (7-18); CALCIUM LEVEL 8.7 MG/DL (8.8-10.2); CARBON DIOXIDE LEVEL 29 MEQ/L (21-32); CHLORIDE LEVEL 103 MEQ/L (98-107); CK-MB VALUE MASS 6.3 NG/ML (<3.6); CREATININE FOR GFR 1.01 MG/DL (0.70-1.30); GLOMERULAR FILTRATION RATE > 60.0 (>35); GLUCOSE, FASTING 155 MG/DL (70-100); MB/CK RELATIVE INDEX 3.94 (< OR =4); POTASSIUM SERUM 4.6 MEQ/L (3.5-5.1); SODIUM LEVEL 136 MEQ/L (136-145); TOTAL PROTEIN 7.1 GM/DL (6.4-8.2)
[2021-10-10 11:13] LABS: RSV AMPLIFICATION NEGATIVE (NEGATIVE)
[2021-10-10] MEDS ORDERED: ISOVUE-370 76% 100ML VIAL As Ordered ONE (11:21)
[2021-10-10] MEDS: HumaLOG INSULIN (NovoLOG) PER UNIT SC SCH ×2 (12:00→18:00)
[2021-10-10] MEDS ORDERED: LIDOCAINE W/EPINEPHRINE 1% 20ML VIAL As Ordered ONE (13:22)
[2021-10-10] MEDS ORDERED: OXYMETAZOLINE 0.05% NASAL SPRAY (AFRIN) As Ordered ONE (13:23)
[2021-10-10] MEDS ORDERED: ALBUTEROL SULFATE 2.5 MG/0.5 ML INH NEB SOLN NEB PRN (14:00)
[2021-10-10] MEDS ORDERED: hydrALAZINE 20MG/ML 1ML VIAL (J0360 PER 20MG) IV PRN (14:00)
[2021-10-10] MEDS ORDERED: DEXTROSE 50% 50 ML SYRINGE IV PRN (14:00)
[2021-10-10] MEDS ORDERED: GLUCAGON INJ 1MG VIAL SC PRN (14:00)
[2021-10-10] MEDS ORDERED: GLUCOSE 4GM CHEW TABLET PO PRN (14:00)
[2021-10-10] MEDS ORDERED: MIDAZOLAM INJ 2MG/2ML VIAL (J2250 PER 1MG) As Ordered ONE (14:13)
[2021-10-10] MEDS ORDERED: fentaNYL 100 MCG/2 ML INJECTION As Ordered ONE (14:13)
[2021-10-10] MEDS ORDERED: LIDOCAINE 2% 100MG/5ML SDV (FOR ANES.) As Ordered ONE (14:13)
[2021-10-10] MEDS ORDERED: propofoL 200 MG/20 ML VIAL As Ordered ONE (14:13)
[2021-10-10] MEDS ORDERED: ETOMIDATE INJ 20MG/10ML VIAL As Ordered ONE (14:13)
[2021-10-10] MEDS ORDERED: fentaNYL 100 MCG/2 ML INJECTION IV PRN (15:20)
[2021-10-10] MEDS ORDERED: LR 1,000 ML IV SCH (15:20)
[2021-10-10] MEDS ORDERED: ONDANSETRON 4MG/2ML VIAL IV PRN (15:20)
[2021-10-10] MEDS ORDERED: oxyCODONE 5MG TAB PO PRN (15:20)
[2021-10-10] MEDS ORDERED: MORPHINE 2 MG/ML 1ML VIAL IV PRN (15:30)
[2021-10-10 16:00] VITALS: BP 114/57
[2021-10-10 16:00] LABS: INR 0.96; PROTHROMBIN TIME 13.2 SECONDS (12.7-14.5)
[2021-10-10 16:01] LABS: PARTIAL THROMBOPLASTIN TIME 35.3 SECONDS (25.9-37.0)
[2021-10-10 16:03] LABS: D-DIMER QUANT 1070.14 ng/ml (<500)
[2021-10-10 16:15] LABS: FERRITIN 327 NG/ML (26-388); LDH LACTATE DEHYDROGENASE 270 U/L (87-241)
[2021-10-10] MEDS ORDERED: FLOR250C PO (16:56)
[2021-10-10] MEDS ORDERED: AMLO1TAB25 PO (16:56)
[2021-10-10] MEDS ORDERED: METF500T13 PO (16:56)
[2021-10-10] MEDS ORDERED: METO25TA4 PO (16:56)
[2021-10-10] MEDS ORDERED: HOME MED LIST COMPLETE! XX SCH (17:00)
[2021-10-10 20:00] VITALS: BP 130/66
[2021-10-11] VITALS: BP 166/70
[2021-10-11 04:00] VITALS: BP_SYST 122; BP_SYST 74; BP_DIAS 74
[2021-10-11 05:08] LABS: HEMATOCRIT 33.5 % (42.0-52.0); HEMOGLOBIN 10.9 g/dl (13.5-17.5); MEAN CORPUSCULAR HEMOGLOBIN 28.9 pg (27.0-33.0); MEAN CORPUSCULAR HGB CONC 32.5 g/dl (32.0-36.5); MEAN CORPUSCULAR VOLUME 88.9 fl (80.0-96.0); PLATELET COUNT, AUTOMATED 405 10^3/uL (150-450); RED BLOOD COUNT 3.77 10^6/uL (4.30-6.10); WHITE BLOOD COUNT 10.6 10^3/uL (4.0-10.0)
[2021-10-11 05:32] LABS: ALT/SGPT 29 U/L (12-78); BILIRUBIN,TOTAL 0.7 MG/DL (0.2-1.0); BLOOD UREA NITROGEN 15 MG/DL (7-18); CALCIUM LEVEL 8.4 MG/DL (8.8-10.2); CARBON DIOXIDE LEVEL 28 MEQ/L (21-32); CHLORIDE LEVEL 103 MEQ/L (98-107); CREATININE FOR GFR 1.04 MG/DL (0.70-1.30); GLOMERULAR FILTRATION RATE > 60.0 (>35); GLUCOSE, FASTING 135 MG/DL (70-100); POTASSIUM SERUM 4.1 MEQ/L (3.5-5.1); SODIUM LEVEL 136 MEQ/L (136-145); TOTAL PROTEIN 6.7 GM/DL (6.4-8.2)
[2021-10-11] MEDS: HumaLOG INSULIN (NovoLOG) PER UNIT SC SCH ×2 (06:00)
[2021-10-11 07:00] VITALS: BP 144/70
[2021-10-11 08:00] VITALS: BP 137/70
[2021-10-11 09:00] VITALS: BP 120/70
[2021-10-11] MEDS ORDERED: PANTOPRAZOLE 40MG VIAL IV SCH (09:00)
[2021-10-11] MEDS ORDERED: GLUCAGON INJ 1MG VIAL SC PRN (09:55)
[2021-10-11] MEDS ORDERED: DEXTROSE 50% 50 ML SYRINGE IV PRN (09:55)
[2021-10-11] MEDS ORDERED: GLUCOSE 4GM CHEW TABLET PO PRN (09:55)
[2021-10-11] MEDS ORDERED: ACET-907 PO (10:15)
[2021-10-11] MEDS ORDERED: HumaLOG INSULIN (NovoLOG) PER UNIT SC SCH ×2 (12:00→21:00)
[2021-10-15] MEDS ORDERED: MAGICMW SSP (16:53)
== END 2021-10-11 11:40 | disposition home or self-care (01) | DRG 205 ==
LOC: M ED 09:29 → M ICU 15:06
PROVIDERS: ADMIT Internal Medicine; ATTEND Internal Medicine
PROC: 0B21XFZ Change Tracheostomy Device in Trachea, External Approach (ICD-10-PCS; 2021-10-10)
PROC: 0BJ18ZZ Inspection of Trachea, Via Natural or Artificial Opening Endoscopic (ICD-10-PCS; principal; 2021-10-10 13:20)
DX: J95.03 Malfunction of tracheostomy stoma (principal); U07.1 COVID-19; E78.5 Hyperlipidemia, unspecified; I12.9 Hypertensive chronic kidney disease with stage 1 through stage 4 chronic kidney disease, or unspecified chronic kidney disease; E11.22 Type 2 diabetes mellitus with diabetic chronic kidney disease; D64.9 Anemia, unspecified; K21.9 Gastro-esophageal reflux disease without esophagitis; H91.93 Unspecified hearing loss, bilateral; N18.30 Chronic kidney disease, stage 3 unspecified; C32.0 Malignant neoplasm of glottis; R06.03 Acute respiratory distress; I16.0 Hypertensive urgency; Y83.1 Surgical operation with implant of artificial internal device as the cause of abnormal reaction of the patient, or of later complication, without mention of misadventure at the time of the procedure; Z87.891 Personal history of nicotine dependence; Z79.84 Long term (current) use of oral hypoglycemic drugs; Z79.899 Other long term (current) drug therapy; Z88.1 Allergy status to other antibiotic agents

== ENCOUNTER → 2021-10-18 | Outpatient (CLI) | payer MEDICARE ==
[~2021-10-18] MED LIST changes: +ACET-907 PO; +FLOR250C PO; +MAGICMW SSP; +METO25TA4 PO
== END ==
LOC: M LABSMTC 11:35
PROVIDERS: ATTEND General Practice
DX: Z11.52 Encounter for screening for COVID-19 (principal)

== ENCOUNTER → 2021-10-23 | Outpatient (POV) | payer MEDICARE ==
[~2021-10-23] VITALS: Ht 177.8 cm; Wt 92.2 kg
[2021-10-23 13:30] VITALS: BP 140/70
== END ==
LOC: M IRPOV 13:07
PROVIDERS: ATTEND Radiology Diagnostic Radiology
DX: C32.0 Malignant neoplasm of glottis (principal); Z88.1 Allergy status to other antibiotic agents; Z93.0 Tracheostomy status; Z92.3 Personal history of irradiation

== ENCOUNTER 2021-11-02 13:11 | Outpatient (RCR) | payer MEDICARE | END 2021-11-03 | LOC: M ONCR 13:11 | PROVIDERS: ATTEND General Practice | DX: C32.0 Malignant neoplasm of glottis (principal) ==

== ENCOUNTER → 2021-12-04 | Outpatient (RCR) | payer MEDICARE ==
[~2021-12-04] MED LIST changes: -GNPLIQ60 PO; +GNPLIQ67 PO; +OXYC1SOL3 PO
== END ==
LOC: M ONCR 11-05 12:50
PROVIDERS: ATTEND General Practice
DX: C32.0 Malignant neoplasm of glottis (principal)